=== PATIENT | female | born 1980 | race Caucasian/White ===

== ENCOUNTER 2019-06-23 08:06 | Emergency (ER) | payer OTHER ==
[~2019-06-23] VITALS: Ht 165.1 cm; Wt 90.7 kg
[2019-06-23] MEDS ORDERED: PREDNISONE 20 MG TAB ONE (08:40)
[2019-06-23] MEDS ORDERED: CYCLOBENZAPRINE5 MG PO (08:41)
[2019-06-23] MEDS ORDERED: PREDNISONE20 MG PO (08:41)
[2019-06-23] MEDS ORDERED: PREDNISONE 20 MG TAB PO ONE (08:45)
== END 2019-06-23 08:54 | disposition home or self-care (01) ==
LOC: FSED 08:06
DX: S39.012A Strain of muscle, fascia and tendon of lower back, initial encounter (principal); X50.1XXA Overexertion from prolonged static or awkward postures, initial encounter; Y92.002 Bathroom of unspecified non-institutional (private) residence as the place of occurrence of the external cause
CPT/HCPCS: 99282; J7512